=== PATIENT | female | born 1940 | race Caucasian/White ===

== ENCOUNTER 2016-09-05 22:14 | Emergency (ER) | payer OTHER, MEDICAID ==
[~2016-09-05] VITALS: Ht 152.4 cm; Wt 49.9 kg
[2016-09-05] MEDS ORDERED: LIDOCAINE /MPF 1% VIAL 5 ML VIAL ONE (23:21)
[2016-09-05] MEDS ORDERED: CEPHALEXIN MONOHYDRATE 500 MG CAPSULE PO ONE (23:39)
[2016-09-05 23:51] VITALS: BP 158/89
[2016-09-06] MEDS ORDERED: CEPHALEXIN MONOHYDRATE 500 MG CAPSULE PO ONE
== END 2016-09-05 23:52 | disposition home or self-care (01) ==
LOC: ER 22:16
DX: L03.011 Cellulitis of right finger (principal)
CPT/HCPCS: 10060; 99283; A4606; A6402 ×2; J3490; Z7610